=== PATIENT | male | born 1990 | race Two or more races ===

== ENCOUNTER 2022-06-02 02:49 | Emergency (ER) | payer SELFPAY ==
[~2022-06-02] VITALS: Ht 182.9 cm; Wt 77.3 kg
[2022-06-02 02:54] VITALS: BP 123/89
== END 2022-06-02 03:30 | disposition left against medical advice (07) ==
LOC: ER 02:49
DX: Z53.21 Procedure and treatment not carried out due to patient leaving prior to being seen by health care provider (principal)
CPT/HCPCS: 99281

== ENCOUNTER 2022-12-23 16:29 | Emergency (ER) | payer SELFPAY ==
[2022-12-23 16:35] VITALS: PULSE 102; RESP 18
== END 2022-12-23 17:56 | disposition left against medical advice (07) ==
LOC: ER 16:29
DX: Z53.21 Procedure and treatment not carried out due to patient leaving prior to being seen by health care provider (principal)